=== PATIENT | female | born 1960 | race Caucasian/White ===

== ENCOUNTER → 2016-12-23 | Outpatient (CLI) | payer MEDICARE, BC, OTHER ==
--- NOTE | 2016-12-23 14:50 | REP ---
LEFT RIB SERIES: Five views including PA chest. HISTORY: Contusion, injury in a fall. FINDINGS: There is a percutaneous neurostimulator catheter superimposed on the cervical spine. There is some catheter material superimposed on the right axilla as well. PA chest radiograph shows no evidence of pneumothorax or hydrothorax. Mediastinum is not widened. Multiple oblique views demonstrate healed or healing fractures with callous formation involving the anterior lateral aspects of the left 3rd, 4th, 5th, and 6th ribs. No definite new rib fracture is seen. No bony destructive lesion is appreciated. IMPRESSION: No new rib fractures seen. Healed or healing fractures noted of the left 3rd through 6th ribs. Otherwise no active disease. Signed by Jasvir Smith MD 12/23/2016 04:23 P
== END ==
LOC: M WUC 13:46
PROVIDERS: ATTEND Physician Assistant
DX: S20.212A Contusion of left front wall of thorax, initial encounter (principal); X58.XXXA Exposure to other specified factors, initial encounter; Y92.89 Other specified places as the place of occurrence of the external cause; Y93.89 Activity, other specified; Y99.8 Other external cause status

== ENCOUNTER → 2020-12-15 | Outpatient (REF) | payer MEDICARE, OTHER, BC | LOC: EEVIPCON 16:52 → M LAB REF 16:52 | PROVIDERS: ATTEND Physician Assistant | DX: J34.0 Abscess, furuncle and carbuncle of nose (principal) ==